=== PATIENT | male | born 1995 | race African-American/Black ===

== ENCOUNTER 2020-06-19 17:23 | Emergency (ER) | payer MEDICAID, OTHER ==
[~2020-06-19] VITALS: Ht 182.9 cm; Wt 90.7 kg
[2020-06-19] MEDS ORDERED: SODIUM CHLORIDE 0.9% 1,000 ML IVB ONE (17:45)
[2020-06-19 20:23] LABS: Basophils # (auto) 0 10 ^3/uL (0-0.2); Basophils % (auto) 0.5 % (0.0-2.0); Eosinophils # (auto) 0.1 10 ^3/uL (0-0.8); Eosinophils % (auto) 2.1 % (0.0-7.0); Hematocrit 44.3 % (41.0-53.0); Hemoglobin 14.7 g/dL (13.5-17.5); Lymphocytes # (auto) 1.1 10 ^3/uL (0.4-5.4); Lymphocytes % (auto) 19.5 % (10.0-50.0); Mean Corpuscular Hemoglobin 31.9 pg (28.0-32.0); Mean Corpuscular Hgb Conc. 33.1 g/dL (32.0-36.0); Mean Corpuscular Volume 96.6 fL (80.0-100.0); Monocytes # (auto) 0.4 10 ^3/uL (0-1.3); Monocytes % (auto) 7.1 % (0.0-12.0); Neutrophils % (auto) 70.8 % (37.0-80.0); Nucleated Red Blood Cells % 0.1 %; Platelet Count (auto) 229 10^3/uL (140-450); Red Blood Cells 4.59 10^6/uL (4.5-5.90); Red Cell Distribution Width 14.1 % (11.8-14.3); White Blood Cell 5.6 10^3/uL (4.4-10.8)
[2020-06-19 20:35] LABS: INR 1.03 (0.9-1.15)
[2020-06-19 20:37] LABS: Albumin 4.2 g/dL (3.4-5.0); Potassium 3.6 mmol/L (3.5-5.1)
[2020-06-19 20:42] LABS: BUN/Creatinine Ratio 6.5; Bilirubin, Total 0.6 mg/dL (0.2-1.0); Total Protein 6.7 g/dL (6.4-8.2)
[2020-06-19] MEDS ORDERED: FOLIC ACID 1 MG, MULTIPLE VITAMIN 10 ML, MAGNESIUM SULF SDV 50% 8 MEQ, THIAMINE INJ 100... INJ STA ×5 (21:12)
[2020-06-19] MEDS ORDERED: THIAMINE 100mg/ml INJ (200mg/2ml VIAL) IV ONE (21:15)
[2020-06-20 02:47] VITALS: BP 104/63
== END 2020-06-20 02:23 | disposition home or self-care (01) ==
LOC: EDBD 17:23 → ER 17:27
DX: G40.909 Epilepsy, unspecified, not intractable, without status epilepticus (principal); F10.129 Alcohol abuse with intoxication, unspecified; Y90.9 Presence of alcohol in blood, level not specified
CPT/HCPCS: 36415; 70450; 71045; 80053; 80320; 83735; 85025; 85610; 85730; 96361; 96365; 96366; 96375; 99285; J3411; J3475; J7030

== ENCOUNTER 2022-08-12 01:01 | Emergency (ER) | payer OTHER, MEDICAID ==
[~2022-08-12] VITALS: Ht 188 cm; Wt 90.0 kg
[2022-08-12 05:00] VITALS: BP 99/64
== END 2022-08-12 05:58 | disposition home or self-care (01) ==
LOC: ER 01:01 → EDBD 01:01 → EDUNIT# 01:01 → ER 05:58
DX: R55 Syncope and collapse (principal); Z86.69 Personal history of other diseases of the nervous system and sense organs
CPT/HCPCS: 70450

== ENCOUNTER 2023-05-08 11:32 | Emergency (ER) | payer MEDICAID, OTHER ==
[~2023-05-08] VITALS: Ht 188 cm; Wt 80.8 kg
[2023-05-08 15:25] VITALS: BP 128/76; PULSE 78; RESP 18; TEMP 98.5; O2SAT 98
== END 2023-05-08 15:44 | disposition home or self-care (01) ==
LOC: ER 11:32
DX: Z48.02 Encounter for removal of sutures (principal); F15.90 Other stimulant use, unspecified, uncomplicated; F10.90 Alcohol use, unspecified, uncomplicated; Z79.1 Long term (current) use of non-steroidal anti-inflammatories (NSAID); Y90.0 Blood alcohol level of less than 20 mg/100 ml

== ENCOUNTER 2025-07-01 22:18 | Emergency (ER) | payer SELFPAY ==
[~2025-07-01 22:18] MED LIST: DIVA-93 PO
[2025-07-01] MEDS: KETOROLAC TROMETH 30 MG/ML 1ML VIAL IM ONE (23:30)
--- NOTE | 2025-07-01 23:55 | ED.PDOC ---
History of Present Illness HPI Comments 30-year-old male presents to the emergency department with nausea, vomiting, periumbilical abdominal pain ongoing for the past 2 days. Symptoms started after he ate [employer]. He has associated fever, chills, rhinorrhea, chest pain, shortness of breath. Pain is currently 5/10 in severity. Denies any similar symptoms in the past. Has not tried any treatment at home. Past medical history includes seizure disorder, he takes Dilantin. REVIEW OF SYSTEMS: General: Positive fever, positive chills, or fatigue HEENT: No sore throat, no earache, no congestion, no neck pain. Cardiac: Positive chest pain. No palpitations. Lungs: Positive shortness of breath, no cough. GI: Positive nausea, positive vomiting, no diarrhea, no constipation, positive abdominal pain : No dysuria, frequency, or urgency. No hematuria. Musculoskeletal: No joint pain , no joint swelling, no extremity edema. Skin: No rash, no itching. Neuro: No headache, no dizziness, no weakness (And as sated in HPI) PHYSICAL EXAM: General: Awake, alert and oriented. No acute distress. Skin: Skin in warm, dry and intact. Appropriate color for ethnicity. HEENT: The head is normocephalic and atraumatic. Conjunctivae are clear without exudates or hemorrhage. Sclera is non-icteric. Eyelids are normal in appearance without swelling or lesions. Oral mucosa is pink and moist Neck: The neck is supple with normal range of motion. No JVD. Cardiac: Heart rate and rhythm are normal. Respiratory: No signs of respiratory distress. Abdominal: Abdomen is soft, positive periumbilical tenderness without distention, guarding or rigidity. Bowel sounds are present and normoactive in all four quadrants. Extremities: Upper and lower extremities are atraumatic in appearance without deformity or edema. Neurological: The patient is awake, alert and oriented to person, place, and time with normal speech. Speech is clear. There is no facial asymmetry. Normal gait Psychiatric: Appropriate mood and affect. Good judgement and insight. Chief Complaint: Abdominal Pain Time Seen by MD: 22:25 Primary Care Provider: MICHEL Allergies: Coded Allergies: NO KNOWN ALLERGIES (Unverified , 07/01/25) Home Meds Active Scripts Divalproex Sodium (Depakote Er) 500 Mg Tab, 1 TAB PO BID for 90 Days, #180 TAB 2 Refills Prov:FAYE GOSS MD 05/23/25 Mode of Arrival: Ambulatory Past Medical History PAST MEDICAL HISTORY: Seizures Surgical History: Denies all surgeries Family History Family History: Unknown Social History Smoker: Non-Smoker Alcohol: Heavy Drugs: Marijuana Lives In: Home Was a procedure done? Was a procedure done?: No Differential Dx Considerations may include: Differential diagnoses considered include: Abdominal aortic aneurysm, NE, esophageal rupture, intestinal obstruction, mesenteric ischemia, perforated viscus or solid organ rupture, CHF with hepatomegaly, pneumonia, abscess, appendicitis, biliary disease, diverticulitis, gastritis, gastroenteritis, hepatitis, hernia, inflammatory bowel disease, pancreatitis, peptic ulcer disease, urinary tract infection, ureteral colic, constipation, GERD, irritable syndrome, abdominal wall pain, nonspecific abdominal pain, herpes zoster, nephrolithiasis. X-Ray, Labs, Meds, VS Vital Signs Date Time Temp Pulse Resp B/P (MAP) Pulse Ox O2 Delivery O2 Flow Rate FiO2 07/01/25 22:19 98.1 77 16 115/66 97 98.1 Lab Test 07/01/25 23:41 Range/Units Total Bilirubin 1.3 H 0.2-1.0 mg/dL Aspartate Amino Transferase (AST) 26 13-40 U/L Alanine Aminotransferase (ALT) 29 7-40 U/L Alkaline Phosphatase 58 46-116 U/L Lipase 30 12-53 U/L Current Medications Medications (Trade) Dose Ordered Sig/Phillip Route Start Time Stop Time Status Last Admin Al Hydrox/Mg Hydrox/Simethicone (Maalox Plus) 30 ml ONCE ONCE PO 07/01/25 23:30 07/01/25 23:31 DC 07/02/25 00:19 Lidocaine HCl (Xylocaine 2% Viscous) 10 ml ONCE ONCE PO 07/01/25 23:30 07/01/25 23:31 DC 07/02/25 00:19 Ondansetron HCl (Zofran Po) 4 mg ONCE ONCE PO 07/02/25 00:15 07/02/25 00:16 DC 07/02/25 00:20 Time of 1ST Reevaluation: 23:55 Reevaluation 1ST: Unchanged Patient Education/Counseling: Need For Follow Up Family Education/Counseling: No Family Present SEPSIS Sepsis Screen Date sepsis recognized/suspect: Jul 01, 2025 Time Sepsis recognized/suspect: 2218 Recent Procedure: No On Antibiotic Therapy: No Respiratory Rate >20: No Heart Rate >90: No Temp<36 C (96.8 F) or >38.3 C: No SBP <90 or MAP <65 mmHG: No New Acute Mental Status Change: No Is the patient on CPAP, BIPAP,: No Vital Signs Date Time Temp Pulse Resp B/P (MAP) Pulse Ox O2 Delivery O2 Flow Rate FiO2 07/01/25 22:19 98.1 77 16 115/66 97 98.1 Medications Medications Dose Ordered Sig/Phillip Route Start Time Stop Time Status Last Admin Dose Admin Al Hydrox/Mg Hydrox/Simethicone 30 ml ONCE ONCE PO 07/01/25 23:30 07/01/25 23:31 DC 07/02/25 00:19 Lidocaine HCl 10 ml ONCE ONCE PO 07/01/25 23:30 07/01/25 23:31 DC 07/02/25 00:19 Ondansetron HCl 4 mg ONCE ONCE PO 07/02/25 00:15 07/02/25 00:16 DC 07/02/25 00:20 Departure 1 Departure Time of Disposition: 00:47 Impression: Primary Impression: Abdominal pain Disposition: HOME / SELF CARE / HOMELESS Condition: Stable Additional Instructions: ED DISCHARGE INSTRUCTIONS Instructions: Please read all instructions provided in this packet carefully. Although you have been discharged from the Emergency Department, this does not mean that you have a "clean bill of health". No definitive diagnosis for your symptoms has been made today. It is possible that you are in the process of developing a serious illness. This is why you must return to the ED without fail if any new or worsening symptoms (especially if your symptoms include chest pain, trouble breathing, abdominal pain, fever, headache, confusion, trouble seeing, or trouble walking) Your bilirubin was mildly elevated today. It is important that you follow up with the primary care provider for re-evaluation. It is also very important that you see a primary care provider (PCP) within the next 3-5 days to follow up. If you are unable to get an appointment, return to the ED for re-evaluation. Abdominal Pain: Care Instructions Overview Abdominal pain has many possible causes. Some aren't serious and get better on their own in a few days. Others need more testing and treatment. If your pain continues or gets worse, you need to be rechecked and may need more tests to find out what is wrong. You may need surgery to correct the problem. Don't ignore new symptoms, such as fever, nausea and vomiting, urination problems, pain that gets worse, and dizziness. These may be signs of a more serious problem. If you are not getting better, you may need more tests or treatment. The doctor has checked you carefully, but problems can develop later. If you notice any problems or new symptoms, get medical treatment right away. Follow-up care is a souza part of your treatment and safety. Be sure to make and go to all appointments, and call your doctor if you are having problems. It's also a good idea to know your test results and keep a list of the medicines you take. How can you care for yourself at home? Rest until you feel better. To prevent dehydration, drink plenty of fluids. Choose water and other clear liquids until you feel better. If you have kidney, heart, or liver disease and have to limit fluids, talk with your doctor before you increase the amount of fluids you drink. When you feel like eating, start with small amounts. Do not have alcohol, caffeine, or spicy, hot, or high-fat foods for a day or two. Avoid anti-inflammatory medicines such as aspirin, ibuprofen (Advil, Motrin), and naproxen (Aleve). These can cause stomach upset. Talk to your doctor if you take daily aspirin for another health problem. When should you call for help? Call 911 anytime you think you may need emergency care. For example, call if: You passed out (lost consciousness). You pass maroon or very bloody stools. You vomit blood or what looks like coffee grounds. You have severe belly pain. Call your doctor now or seek immediate medical care if: Your pain gets worse, especially if it becomes focused in one area of your belly. You have a new or higher fever. Your stools are black and look like tar, or they have streaks of blood. You have unexpected vaginal bleeding. You have symptoms of a urinary tract infection. These may include: Pain when you urinate. Urinating more often than usual. Blood in your urine. You are dizzy or lightheaded, or you feel like you may faint. Watch closely for changes in your health, and be sure to contact your doctor if: You are not getting better as expected. Credits for Abdominal Pain: Care Instructions Current as of: June 08, 2023 Author: Shira [employer] [place] Staff Clinical Review Board All [employer] education is reviewed by a team that includes physicians, nurses, advanced practitioners, registered dieticians, and other healthcare professionals. e-Prescriptions Ondansetron Odt 4MG Tab (ZOFRAN PO) 4 Mg Tb 4 MG PO TIDPRN PRN for 3 Days, #9 TAB ODT TAB-DISSOLVE IN MOUTH, THEN SWALLOW Prov: ÁNGEL FORD MD 07/02/25 Comments MDM: 30-year-old male with nausea, vomiting, abdominal pain. He is afebrile. Patient reports abdominal pain resolved during the ED observation and he would like to be discharged home. Patient is well-appearing, nontoxic. Vital signs stable. Diagnostic results reviewed and are not urgently actionable. Patient is felt stable for discharge home. Patient advised to follow up with primary care provider promptly and return to the emergency department with any new, worsening or concerning symptoms. I reviewed the following notes from the pt's past medical encounters: N/A The following tests were ordered, and results were reviewed by me: (See diagnostic results section) The following test were independently interpreted by me: N/A Additional information was gathered from interviewing the following independent historians: N/A I reviewed and agreed with the following test results read by other providers: N/A I discussed treatments and results with patient Decision regarding hospitalization or escalation of hospital level of care: Risks and benefits of admission for further treatment of patient's condition was considered however due to patient's stable condition patient will be discharged to follow up closely or return to care for worsening of condition or inability to follow up. Critical Care Note Critical Care Time?: No Stability Stability form required: No Heart Score Heart Score: Heart Score Response (Comments) Value History N/A 0 EKG N/A 0 Age N/A 0 Risk Factors N/A 0 Troponin N/A 0 Total 0 ÁNGEL FORD MD Jul 01, 2025 23:55
[2025-07-02 00:15] LABS: Alanine Aminotransferase 29.0 U/L (7-40); Alkaline Phosphatase 58.0 U/L (46-116); Lipase 30.0 U/L (12-53)
[2025-07-02 00:19] LABS: Bilirubin, Total 1.3 mg/dL (0.2-1.0)
[2025-07-02] MEDS: MAALOX PLUS or MAALOX 30 ML PO ONE (00:19)
[2025-07-02] MEDS: LIDOCAINE VISCOUS 2% 15ML UD PO ONE (00:19)
[2025-07-02] MEDS: ONDANSETRON ODT 4 MG TAB PO ONE (00:20)
[2025-07-02] MEDS ORDERED: ZOFR4T PO (00:47)
[2025-07-02 00:52] VITALS: BP 120/73; PULSE 75; RESP 16; TEMP 98.2; O2SAT 98
== END 2025-07-02 01:04 | disposition home or self-care (01) ==
LOC: ER 22:18
DX: R10.33 Periumbilical pain (principal)
CPT/HCPCS: 36415; 82247; 83690; 84075; 84450; 84460; 99284; Q0162